=== PATIENT | female | born 1975 | race Caucasian/White ===

== ENCOUNTER → 2017-05-01 | Outpatient (CLI) | payer BC ==
--- NOTE | 2017-05-01 15:43 | CT ---
EXAMINATION TYPE: CT urogram wo/w con DATE OF EXAM: 05/01/2017 COMPARISON: 09/16/2015 HISTORY: 41-year-old female Microscopic hematuria and left flank pain. TECHNIQUE: Contiguous axial scanning of the abdomen and pelvis performed without and with IV Contrast , patient injected with 100 mL of Omnipaque 350. Delayed images through the kidneys and bladder were obtained. Coronal/sagittal reconstructions performed. 3-D reconstructions generated on a dedicated in dependent workstation. CT DLP: 2124 mGycm Automated exposure control for dose reduction was used. FINDINGS: Heart is normal size without pericardial effusion. Lung bases clear without pleural effusion. Small amount of focal fat along the anterior falciform ligament. Otherwise, no focal liver lesion. No biliary ductal dilatation. Cholecystectomy clips are present. Portal venous system is patent. Adrenal glands, spleen, pancreas appear within normal limits. No nephrolithiasis or hydronephrosis. There is symmetric uptake and excretion of contrast from the ki dneys. Tiny subcentimeter hypodensity lower pole left kidney and additional 1 cm hypodensity posterior left kidney but too small for accurate CT characterization and most suggestive of cysts There is satisfactory opacification of the renal collecting systems without any suspicious filling de fect identified. There is some tortuosity of the distal left ureter. The ureters are seen opacified t hroughout their course. No dilated small bowel, free fluid, or free air. Some prominent fluid-filled small bowel loops in the mid and lower abdomen are nonspecific and of questionable clinical significance in the absence of an y symptoms of enteritis. Normal appendix. Mild stool throughout the colon without pericolonic inflammatory change. No mesenteric or retroperitoneal lymphadenopathy. Uterus is visualized as are both ovaries. No abnormal fluid collection the pelvis or pelvic lymphaden opathy. A tampon is in place. The bladder shows no suspicious filling defect save for the far anterio r wall which is nonopacified. Bones: No osseous destructive process. IMPRESSION: 1. NO NEPHROLITHIASIS, HYDRONEPHROSIS, SUSPICIOUS RENAL LESION, OR FILLING DEFECT IDENTIFIED ALONG TH E URETERS OR COLLECTING SYSTEMS. 2. A COUPLE LESIONS IN THE LEFT KIDNEY ARE TOO SMALL FOR ACCURATE CT CHARACTERIZATION AND MOST SUGGES TIVE OF CYSTS.
== END | disposition home or self-care (01) ==
LOC: RADCTMAIN 13:37
PROVIDERS: ATTEND Urology
DX: N28.9 Disorder of kidney and ureter, unspecified (principal)
CPT/HCPCS: 74178; 74400; Q9967

== ENCOUNTER 2018-06-26 18:32 | Emergency (ER) | payer BC, OTHER ==
[2018-06-26 18:37] VITALS: BP 160/94; PULSE 89; RESP 18; TEMP 98
--- NOTE | 2018-06-26 18:54 | ED ---
Lower Extremity Injury HPI - General Chief Complaint: Extremity Injury, Lower Stated Complaint: Foot injury Time Seen by Provider: 06/26/18 18:44 Source: patient Mode of arrival: wheelchair Limitations: no limitations - History of Present Illness Initial Comments: 42-year-old female presenting today for chief complaint of right foot pain. Patient states she was chasing her dog who had run into the road when she felt a crunch in her right foot. She states she had a recent right foot fracture. Patient states she is not able to weight-bear secondary to the pain. Patient denies any knee pain. Patient denies any head injury or loss of consciousness or neck injury. Patient denies any trauma to the abdomen. Patient denies any upper extremity injuries. Remaining review of systems negative patient denies numbness tingling or loss sensation cause or pallor of the extremity. Patient appears well upon arrival she is pleasant. - Related Data Previous Rx's Medication Instructions Recorded Levofloxacin [Levaquin] 750 mg PO DAILY #14 tab 09/16/15 Naproxen [Naprosyn] 500 mg PO Q12HR #60 tab 09/16/15 Allergies Allergy/AdvReac Type Severity Reaction Status Date / Time No Known Allergies Allergy Verified 06/26/18 18:37 Review of Systems ROS Statement: Those systems with pertinent positive or pertinent negative responses have been documented in the HPI. ROS Other: All systems not noted in ROS Statement are negative. Past Medical History Past Medical History: No Reported History History of Any Multi-Drug Resistant Organisms: None Reported Past Surgical History: Cholecystectomy, Tonsillectomy Past Psychological History: No Psychological Hx Reported Smoking Status: Former smoker Past Alcohol Use History: Occasional Past Drug Use History: None Reported General Exam - General Exam Comments Initial Comments: General: The patient is awake and alert, in no distress, and does not appear acutely ill. Eye: Pupils are equal, round and reactive to light, extra-ocular movements are intact. No nystagmus. There is normal conjunctiva bilaterally. No signs of icterus. Ears, nose, mouth and throat: There are moist mucous membranes and no oral lesions. Neck: The neck is supple, there is no tenderness or JVD. Cardiovascular: There is a regular rate and rhythm. No murmur, rub or gallop is appreciated. Respiratory: Lungs are clear to auscultation, respirations are non-labored, breath sounds are equal. No wheezes, stridor, rales, or rhonchi. Gastrointestinal: [Soft, non-distended, non-tender abdomen without masses or organomegaly noted. There is no rebound or guarding present. No CVA tenderness. Bowel sounds are unremarkable.] Musculoskeletal: Small bruise on the forefoot. Patient is tender to the patient of the forefoot. No tenderness to patient the lateral or medial malleolus. Normal ROM, no tenderness of the ankles bilaterally. Patient has tenderness with dorsi and plantar flexion. Strength 5/5. Sensation intact of the lower extremities including distal and proximal to the injury site. No foot drop no tenderness to palpation of the knees bilaterally. Full range of motion at the knees bilaterally. DP pulses equal bilaterally 2+. Neurological: A&O x 3. CN II-XII intact, There are no obvious motor or sensory deficits. Coordination appears grossly intact. Speech is normal. Skin: Skin is warm and dry and no rashes or lesions are noted. Psychiatric: Cooperative, appropriate mood & affect, normal judgment. Limitations: no limitations Course Vital Signs 06/26/18 18:33 Temperature 98 F Pulse Rate 89 Respiratory 18 Rate Blood Pressure 160/94 O2 Sat by Pulse 98 Oximetry Medical Decision Making - Medical Decision Making Well appearing 42-year-old female presenting for right foot pain. No acute osseous injury evident on imaging studies. Patient is significantly tender over the forefoot. Patient is placed in a splint given nonweightbearing instructions until further evaluation by orthopedic surgery. She was provided prescription for crutches. Patient is understanding of the concern with weightbearing, possible ligament injury. There is no evidence on imaging studies for Lisfranc injury. Pt neurovascularly intact. Discussed case is reviewed imaging studies attempt by Dr. Deal this group of patient's plan of care as well as discharge. Patient understands she is not weight bearing until orthopedic clearance. Disposition Clinical Impression: Foot sprain Disposition: HOME SELF-CARE Condition: Good Instructions (If sedation given, give patient instructions): Foot Sprain (ED) Additional Instructions: Please use medication as discussed. Please follow-up with the [facility] in next 2-3 days Please return to emergency room if the symptoms increase or worsen or for any other concerns. Is patient prescribed a controlled substance at d/c from ED?: No Referrals: Geovani Maciel MD [Primary Care Provider] - 1-2 days Chavez Mccurdy DO [Medical Doctor] - 1-2 days Time of Disposition: 19:55
--- NOTE | 2018-06-26 19:21 | XR ---
EXAMINATION TYPE: XR ankle complete RT DATE OF EXAM: 06/26/2018 COMPARISON: NONE HISTORY: Ankle pain TECHNIQUE: 3 views FINDINGS: Ankle mortise is anatomic. There are plantar and Achilles calcaneal spurs. I see no fractur e nor dislocation. IMPRESSION: Negative exam for fracture. Calcaneal spurring is noted.
--- NOTE | 2018-06-26 19:22 | XR ---
EXAMINATION TYPE: XR foot complete RT DATE OF EXAM: 06/26/2018 COMPARISON: NONE HISTORY: Rolled ankle today. Pain. TECHNIQUE: 3 views FINDINGS: Metatarsals are intact. I see no fracture nor dislocation. Joint spaces are normal. There a re plantar and Achilles calcaneal spurs. IMPRESSION: Calcaneal spurring. No fracture seen.
== END 2018-06-26 20:12 | disposition home or self-care (01) ==
LOC: EC 18:32
DX: S93.601A Unspecified sprain of right foot, initial encounter (principal); Z87.891 Personal history of nicotine dependence; Z87.81 Personal history of (healed) traumatic fracture; X50.9XXA Other and unspecified overexertion or strenuous movements or postures, initial encounter; Y93.89 Activity, other specified; Y92.410 Unspecified street and highway as the place of occurrence of the external cause
CPT/HCPCS: 29515; 99283

== ENCOUNTER → 2018-07-01 | Outpatient (CLI) | payer OTHER ==
--- NOTE | 2018-07-02 10:01 | CT ---
EXAMINATION TYPE: CT foot RT wo con DATE OF EXAM: 07/01/2018 COMPARISON: 06/26/2018 Technique: Axial images 2 mm thick sections. Reconstructed images in the coronal and sagittal plane. Three-D reconstructed images performed separately on the [employer] computer are presented. HISTORY: right metatarsal fx CT DLP: 294.3 mGycm Automated exposure control for dose reduction was used. FINDINGS: Ankle mortise appears grossly intact. There is a tiny ossification adjacent to the inferior medial ma lleolus may be a small secondary ossification center or an old avulsion. Os talus is present. The hin dfoot appears intact. There is a fracture of the proximal first metatarsal with intra-articular extension. No interval heal ing is evident. This is a longitudinal fracture predominantly at the inferior lateral aspect of the f irst metatarsal. No additional fractures are identified. Soft tissues are normal. IMPRESSION: 1. LONGITUDINAL FRACTURE AT THE PROXIMAL FIRST METATARSAL WITH INTRA-ARTICULAR EXTENSION.
== END | disposition home or self-care (01) ==
LOC: RADCTMAIN 16:05
PROVIDERS: ATTEND Orthopaedic Surgery
DX: S92.311A Displaced fracture of first metatarsal bone, right foot, initial encounter for closed fracture (principal)

== ENCOUNTER 2020-02-27 16:54 | Emergency (ER) | payer OTHER ==
[2020-02-27 17:02] VITALS: RESP 18; TEMP 98.9
[2020-02-27] MEDS ORDERED: CAFFEINE-SODIUM BENZOATE 1,000 MG in SODIUM CHLORIDE 0.9% 1,000 ML IVPB ONE (17:03)
--- NOTE | 2020-02-27 17:30 | ED ---
General Adult HPI - General Source: patient Mode of arrival: ambulatory Limitations: no limitations <Vamshi Jones - Last Filed: 02/28/20 10:09> <Tricia Muniz - Last Filed: 03/01/20 13:46> - General Chief complaint: Headache Stated complaint: HEADACHE,BACKPAIN HAD LUMBAR PUNCTURE 48HRS AGO Time Seen by Provider: 02/27/20 17:02 - History of Present Illness Initial comments: 44-year-old female presenting to the emergency department with a chief complaint of headache. Patient states 48 hours ago she had a lumbar puncture performed after she was diagnosed with pseudotumor cerebra. Patient states they removed about 12 mL of CSF. States afterwards she was informed about the potential of developing a spinal headache. Patient states she did develop a headache whenever she is in a vertical position. Reports the pain is alleviated when laying flat. Patient states she has been drinking plenty of fluids and having coffee and pop. However, she reported the pain is not significantly improved. She denies any other complaints. (Vamshi Jones) - Related Data Previous Rx's Medication Instructions Recorded Levofloxacin [Levaquin] 750 mg PO DAILY #14 tab 09/16/15 Naproxen [Naprosyn] 500 mg PO Q12HR #60 tab 09/16/15 Allergies Allergy/AdvReac Type Severity Reaction Status Date / Time No Known Allergies Allergy Verified 02/27/20 17:02 Review of Systems ROS Other: All systems not noted in ROS Statement are negative. <Vamshi Jones - Last Filed: 02/28/20 10:09> ROS Other: All systems not noted in ROS Statement are negative. <Tricia Muniz - Last Filed: 03/01/20 13:46> ROS Statement: Those systems with pertinent positive or pertinent negative responses have been documented in the HPI. Past Medical History Past Medical History: CVA/TIA Additional Past Medical History / Comment(s): stroke behind right eye History of Any Multi-Drug Resistant Organisms: None Reported Past Surgical History: Cholecystectomy, Tonsillectomy Past Psychological History: No Psychological Hx Reported Smoking Status: Former smoker Past Alcohol Use History: Occasional Past Drug Use History: None Reported <Vamshi Jones - Last Filed: 02/28/20 10:09> General Exam Limitations: no limitations General appearance: alert, in no apparent distress Head exam: Present: atraumatic, normocephalic, normal inspection Eye exam: Present: normal appearance, PERRL, EOMI Pupils: Present: normal accommodation ENT exam: Present: normal exam, normal oropharynx, mucous membranes moist, TM's normal bilaterally, normal external ear exam Neck exam: Present: normal inspection, full ROM. Absent: tenderness Respiratory exam: Present: normal lung sounds bilaterally. Absent: respiratory distress, wheezes, rales Cardiovascular Exam: Present: regular rate, normal rhythm, normal heart sounds. Absent: systolic murmur, diastolic murmur GI/Abdominal exam: Present: soft. Absent: distended, tenderness, guarding, rebound Extremities exam: Present: normal inspection, full ROM, normal capillary refill. Absent: tenderness, pedal edema, joint swelling Back exam: Present: normal inspection, full ROM. Absent: tenderness, CVA tenderness (R), CVA tenderness (L), muscle spasm, paraspinal tenderness Neurological exam: Present: alert, oriented X3, CN II-XII intact, normal gait Psychiatric exam: Present: normal affect, normal mood Skin exam: Present: warm, dry, intact, normal color <Vamshi Jones - Last Filed: 02/28/20 10:09> Course Vital Signs 02/27/20 02/27/20 16:58 19:08 Temperature 98.9 F Pulse Rate 80 72 Respiratory 18 18 Rate Blood Pressure 151/73 145/68 O2 Sat by Pulse 100 98 Oximetry Medical Decision Making - Lab Data Result diagrams: 02/27/20 17:30 02/27/20 17:30 <Vamshi Jones - Last Filed: 02/28/20 10:09> - Lab Data Result diagrams: 02/27/20 17:30 02/27/20 17:30 <Tricia Muniz - Last Filed: 03/01/20 13:46> - Medical Decision Making 44-year-old female presenting to the emergency department with a chief complaint of a headache. Neurological examination is unremarkable. Patient appears to have a spinal headache that only starts whenever she is in a vertical position and is completely resolved when laying flat. No focal neural deficits. Patient was given IV caffeine with fluids and a single dose of morphine with Zofran. Patient did report improvement of symptoms. She was able to ambulate to the bathroom and around. The headache was not completely resolved but it was improved compared to initial evaluation. Patient was offered additional juice, she declined and states that she feels comfortable going home. Advised to follow-up with her neurologist. Strict return parameters were thoroughly discussed with patient was understanding and agreeable. Case discussed with physician. (Vamshi Jones) I was available for consultation in the emergency department. The history and physical exam were done by the midlevel provider. I was consulted for this patients care. I reviewed the case with the midlevel provider and based on their presentation of the patient, I agree with the assessment, medical decision making and plan of care as documented. Chart was dictated using [employer] dictation software. Attempts were made to correct any dictation errors however some typographical errors may persist. Patient was seen during a national state of emergency due to the Covid-19 pandemic. (Tricia Muniz) - Lab Data Lab Results 02/27/20 02/27/20 Range/Units 17:30 17:30 WBC 9.1 (3.8-10.6) k/uL RBC 4.55 (3.80-5.40) m/uL Hgb 14.1 (11.4-16.0) gm/dL Hct 40.3 (34.0-46.0) % MCV 88.5 (80.0-100.0) fL MCH 31.1 (25.0-35.0) pg MCHC 35.1 (31.0-37.0) g/dL RDW 12.1 (11.5-15.5) % Plt Count 236 (150-450) k/uL MPV 7.4 Neutrophils % 75 % Lymphocytes % 20 % Monocytes % 3 % Eosinophils % 1 % Basophils % 1 % Neutrophils # 6.8 (1.3-7.7) k/uL Lymphocytes # 1.8 (1.0-4.8) k/uL Monocytes # 0.3 (0-1.0) k/uL Eosinophils # 0.1 (0-0.7) k/uL Basophils # 0.1 (0-0.2) k/uL Sodium 139 (137-145) mmol/L Potassium 3.7 (3.5-5.1) mmol/L Chloride 109 H (98-107) mmol/L Carbon Dioxide 26 (22-30) mmol/L Anion Gap 4 mmol/L BUN 12 (7-17) mg/dL Creatinine 0.56 (0.52-1.04) mg/dL Est GFR (CKD-EPI)AfAm >90 (>60 ml/min/1.73 sqM) Est GFR (CKD-EPI)NonAf >90 (>60 ml/min/1.73 sqM) Glucose 99 (74-99) mg/dL Calcium 9.3 (8.4-10.2) mg/dL Total Bilirubin 0.4 (0.2-1.3) mg/dL AST 16 (14-36) U/L ALT 26 (4-34) U/L Alkaline Phosphatase 90 (38-126) U/L Total Protein 7.0 (6.3-8.2) g/dL Albumin 4.3 (3.5-5.0) g/dL Disposition Is patient prescribed a controlled substance at d/c from ED?: No Time of Disposition: 19:11 <Vamshi Jones - Last Filed: 02/28/20 10:09> <Tricia Muniz - Last Filed: 03/01/20 13:46> Clinical Impression: Spinal headache Disposition: HOME SELF-CARE Condition: Stable Instructions (If sedation given, give patient instructions): Epidural Blood Patch (DC), Lumbar Puncture (ED) Additional Instructions: Follow-up with a primary care physician. Return to emergency department if symptoms worsen. Referrals: Geovani Maciel MD [Primary Care Provider] - 1-2 days
[2020-02-27 17:40] LABS: Basophils # (A) 0.1 k/uL (0-0.2); Basophils % (A) 1 %; Eosinophils # (A) 0.1 k/uL (0-0.7); Eosinophils % (A) 1 %; HCT 40.3 % (34.0-46.0); HGB 14.1 gm/dL (11.4-16.0); Lymphocytes # (A) 1.8 k/uL (1.0-4.8); Lymphocytes % (A) 20 %; MCH 31.1 pg (25.0-35.0); MCHC 35.1 g/dL (31.0-37.0); MCV 88.5 fL (80.0-100.0); Mean Platelet Volume 7.4; Monocytes # (A) 0.3 k/uL (0-1.0); Monocytes % (A) 3 %; Neutrophils # (A) 6.8 k/uL (1.3-7.7); Neutrophils % (A) 75 %; Platelet Count 236 k/uL (150-450); RBC 4.55 m/uL (3.80-5.40); RDW 12.1 % (11.5-15.5); WBC 9.1 k/uL (3.8-10.6)
[2020-02-27 18:09] LABS: ALT 26 U/L (4-34); AST 16 U/L (14-36); African American GFR (CKD) >90 (>60 ml/min/1.73 sqM); Albumin 4.3 g/dL (3.5-5.0); Alkaline Phosphatase 90 U/L (38-126); Anion Gap 4 mmol/L; Blood Urea Nitrogen 12 mg/dL (7-17); Calcium 9.3 mg/dL (8.4-10.2); Carbon Dioxide 26 mmol/L (22-30); Chloride 109 mmol/L (98-107); Glucose 99 mg/dL (74-99); Non-African American GFR(CKD) >90 (>60 ml/min/1.73 sqM); Potassium 3.7 mmol/L (3.5-5.1); Sodium 139 mmol/L (137-145); Total Bilirubin 0.4 mg/dL (0.2-1.3)
[2020-02-27] MEDS ORDERED: ONDANSETRON 4 MG/2 ML VIAL IVP STA (18:50)
[2020-02-27] MEDS ORDERED: MORPHINE SULFATE 4 MG/ML SYRINGE IVP STA (18:50)
[2020-02-27 19:11] VITALS: BP 145/68; PULSE 72
== END 2020-02-27 19:40 | disposition home or self-care (01) ==
LOC: EC 16:54
DX: R51.9 Headache, unspecified (principal); Z86.73 Personal history of transient ischemic attack (TIA), and cerebral infarction without residual deficits; Z87.891 Personal history of nicotine dependence
CPT/HCPCS: 36415; 80053; 85025; 99284; 96365; 96375 ×2; J2270; J2405